=== PATIENT | female | born 1965 | race Caucasian/White ===

== ENCOUNTER 2016-08-18 18:08 | Emergency (ER) | payer BC ==
[~2016-08-18] VITALS: Ht 160 cm; Wt 65.5 kg
[2016-08-18 18:12] VITALS: Ht 160 cm; Wt 65.5 kg
--- NOTE | 2016-08-19 01:45 | ERA ---
ER Documentation Chief Complaint Date/Time DATE: 08/19/16 TIME: 01:45 Chief Complaint Palpitation HPI The patient is a 51-year-old female, presenting to the ER because of palpitations intermittently for the last 2 days, worse today. She denies syncope, near syncope, weakness, neck pain, chest pain, dyspnea, abdominal pain , vomiting, dysuria, diarrhea. She denies similar symptoms previously, denies smoking or drinking Past medical history: None Past surgical history: Appendectomy ROS All systems reviewed and are negative except as per history of present illness. Medications Home Meds Reported Medications [Gingko Bulova] No Conflict Check, 1 CAP DAILY 08/19/16 [place]-3 Fatty Acids/Fish Oil (Fish Oil 1,000 mg Softgel) 1 Each Capsule, 1 EACH PO, CAP 08/19/16 Calcium Citrate* (Citracal*) 950 Mg Tab, 950 MG PO DAILY, TAB 08/19/16 Cholecalciferol* (Vitamin D*) 400 Unit Tablet, 400 UNIT PO DAILY, TAB 08/19/16 Multivitamins* (Theragran*) 1 Tab Tab, 1 TAB PO DAILY, TAB 08/19/16 Allergies Allergies: Coded Allergies: amoxicillin (Verified Allergy, Unknown, 08/19/16) azithromycin (Verified Allergy, Unknown, 08/19/16) ciprofloxacin (Verified Allergy, Unknown, 08/19/16) tetracycline (Verified Allergy, Unknown, 08/19/16) PMhx/Soc History of Surgery: Yes (appendectomy) Anesthesia Reaction: No Hx Neurological Disorder: No Hx Respiratory Disorders: No Hx Cardiac Disorders: No Hx Psychiatric Problems: No Hx Miscellaneous Medical Probl: Yes (arthritis) Hx Alcohol Use: Yes (rarely) Hx Substance Use: No Hx Tobacco Use: Yes (quit years ago) Smoking Status: Former smoker Physical Exam Vitals Vital Signs Date Time Temp Pulse Resp B/P Pulse Ox O2 Delivery O2 Flow Rate FiO2 08/19/16 01:07 61 13 114/72 100 Room Air 08/18/16 18:12 98.6 75 20 130/60 99 Physical Exam Const: No acute distress. Head: Atraumatic. Eyes: Normal Conjunctiva. ENT: Normal External Ears, Nose and Mouth. Neck: Full range of motion. No meningismus. Resp: Clear to auscultation bilaterally. Cardio: Regular rate and rhythm, no murmurs. Abd: Soft, non distended, normal bowel sounds, non tender. Skin: No petechiae or rashes. Back: No midline or flank tenderness. Ext: No cyanosis, or edema. Neur: Awake and alert. No focal deficit Psych: Normal Mood and Affect. Result Diagram: 08/19/16 0235 08/19/16 0235 Results 24 hrs Laboratory Tests Test 08/19/16 02:35 White Blood Count 7.110^3/ul Red Blood Count 4.5910^6/ul Hemoglobin 13.7g/dl Hematocrit 42.5% Mean Corpuscular Volume 92.6fl Mean Corpuscular Hemoglobin 29.8pg Mean Corpuscular Hemoglobin Concent 32.2g/dl Red Cell Distribution Width 12.3% Platelet Count 22174^3/UL Mean Platelet Volume 10.4fl Neutrophils % 26.3% Lymphocytes % 62.4% Monocytes % 8.8% Eosinophils % 1.8% Basophils % 0.6% Nucleated Red Blood Cells % 0.0/100WBC Neutrophils # 1.910^3/ul Lymphocytes # 4.410^3/ul Monocytes # 0.610^3/ul Eosinophils # 0.110^3/ul Basophils # 0.010^3/ul Nucleated Red Blood Cells # 0.010^3/ul Prothrombin Time 12.0Sec Prothrombin Time Ratio 0.9 INR International Normalized Ratio 0.89 Activated Partial Thromboplast Time 26.5Sec Sodium Level 140mmol/L Potassium Level 3.8mmol/L Chloride Level 105mmol/L Carbon Dioxide Level 26mmol/L Anion Gap 13 Blood Urea Nitrogen 21mg/dl Creatinine 0.80mg/dl Glucose Level 91mg/dl Calcium Level 9.0mg/dl Magnesium Level 2.0mg/dl Troponin I < 0.012ng/ml Thyroid Stimulating Hormone (TSH) 4.110MIU/L Procedures/MDM EKG: At 6:20 PM read by emergency physician Rate/Rhythm: Normal Sinus Rhythm 84 beats/min QRS, ST, T-waves: No ST elevation, no T inversion, PVC Impression: Abnormal EKG EKG: At 1:57 AM read by emergency physician Rate/Rhythm: Normal Sinus Rhythm 76 beats/min QRS, ST, T-waves: No ST elevation, no T inversion, PVC, bigeminy Impression: Abnormal EKG [facility] [address] [id number] Radiology Main Line: [phone] DIAGNOSTIC IMAGING REPORT Patient: VERNON VANG : 1965 Age: 51 Sex: F MR #: [id number] DOS: 08/19/16 0149 Ordering MD: KATERIN STEINBERG MD Location: E/R Room/Bed: PROCEDURE: XR Chest. CLINICAL INDICATION: Chest pain. TECHNIQUE: Single frontal chest x-ray. COMPARISON: None. FINDINGS: The cardiomediastinal silhouette is unremarkable. There is no congestive heart failure.. No focal infiltrate is seen. There is no pleural effusion. There is no pneumothorax. The osseous structures are unremarkable. IMPRESSION: 1. No active disease. RPTAT: HMVK .Katerin Garland MD, MD Date Time Electronically viewed and signed by .Katerin Garland MD, on 08/19/2016 02:25 .K/ CC: KATERIN STEINBERG MD MEDICAL MAKING DECISION: The patient is a 51-year-old female, presenting with acute palpitation of unclear etiology. She is stable for outpatient follow-up. The differential diagnoses considered include but are not limited to cardiac arrhythmia, hypothyroidism, hyperthyroidism, acute coronary syndrome, acute myocardial infarction, pericarditis, pulmonary embolism, aortic dissection, pneumonia, pleural effusion, pneumothorax, GERD, chest wall pain. Departure Diagnosis: Primary Impression: Palpitations Condition: Good Comments I discussed the findings with the patient. I advised the patient to follow-up with the primary physician in about 1-2 days for referral to cardiology, sooner if needed and return if any concern. The patient's blood pressure was elevated (>120/80) but appears stable without evidence of hypertension emergency or urgency. The patient was counseled about the risks of hypertension and urged to pursue outpatient monitoring and therapy within a week with their primary care physician. KATERIN STEINBERG MD August 19, 2016 01:45
[2016-08-19] MEDS ORDERED: MULTI PO (02:07)
[2016-08-19] MEDS ORDERED: CHOL400T10 PO (02:08)
[2016-08-19] MEDS ORDERED: CITRACAL PO (02:09)
[2016-08-19] MEDS ORDERED: OMEG1CAP9 PO (02:09)
[2016-08-19] MEDS ORDERED: GINKGO BILOBA (02:11)
--- NOTE | 2016-08-19 02:25 | RADRPT ---
PROCEDURE: XR Chest. CLINICAL INDICATION: Chest pain. TECHNIQUE: Single frontal chest x-ray. COMPARISON: None. FINDINGS: The cardiomediastinal silhouette is unremarkable. There is no congestive heart failure.. No focal i nfiltrate is seen. There is no pleural effusion. There is no pneumothorax. The osseous structures are unremarkable. IMPRESSION: 1. No active disease. RPTAT: HMVK .Doc Garland MD, MD Date Time Electronically viewed and signed by .Doc Garland MD, MD on 08/19/2016 02:25 .K/
[2016-08-19 02:50] LABS: ADD SCAN DIFF NO
[2016-08-19 03:06] LABS: BASOPHILS % 0.6 % (0.0-2.0); EOSINOPHILS # 0.1 10^3/ul (0.0-0.5); EOSINOPHILS % 1.8 % (0.0-7.0); HEMATOCRIT 42.5 % (37.0-47.0); HEMOGLOBIN 13.7 g/dl (12.0-16.0); LYMPHOCYTES # 4.4 10^3/ul (0.8-2.9); LYMPHOCYTES % 62.4 % (15.0-51.0); MEAN CORPUSCULAR HEMOGLOBIN 29.8 pg (29.0-33.0); MEAN CORPUSCULAR HGB CONC 32.2 g/dl (32.0-37.0); MEAN CORPUSCULAR VOLUME 92.6 fl (82.0-101.0); MEAN PLATELET VOLUME 10.4 fl (7.4-10.4); MONOCYTE # 0.6 10^3/ul (0.3-0.9); MONOCYTES % 8.8 % (0.0-11.0); NEUTROPHIL # 1.9 10^3/ul (1.6-7.5); NEUTROPHILS % 26.3 % (39.0-77.0); PLATELET COUNT 286 10^3/UL (140-415); RED BLOOD COUNT 4.59 10^6/ul (4.20-5.40); RED CELL DISTRIBUTION WIDTH 12.3 % (11.5-14.5); WHITE BLOOD COUNT 7.1 10^3/ul (4.8-10.8)
[2016-08-19 03:15] LABS: INR 0.89; PT RATIO 0.9
[2016-08-19 03:16] LABS: PARTIAL THROMBOPLASTIN TIME 26.5 Sec (25.0-35.0)
[2016-08-19 03:21] LABS: CHLORIDE 105 mmol/L (97-110); POTASSIUM 3.8 mmol/L (3.5-5.1); SODIUM 140 mmol/L (135-144)
[2016-08-19 03:24] LABS: ANION GAP 13 (8-16); BLOOD UREA NITROGEN 21 mg/dl (7-20); CARBON DIOXIDE 26 mmol/L (21-31); GLUCOSE 91 mg/dl (70-220)
[2016-08-19 03:37] LABS: TROPONIN-I < 0.012 ng/ml (0.00-0.12)
[2016-08-19 05:29] VITALS: BP 103/76; PULSE 78; RESP 16; TEMP 98
== END 2016-08-19 05:30 | disposition home or self-care (01) ==
LOC: E/R 18:08
DX: R00.2 Palpitations (principal); R40.2252 Coma scale, best verbal response, oriented, at arrival to emergency department; R07.9 Chest pain, unspecified; R40.2142 Coma scale, eyes open, spontaneous, at arrival to emergency department; R40.2362 Coma scale, best motor response, obeys commands, at arrival to emergency department; Z87.891 Personal history of nicotine dependence
CPT/HCPCS: 36415; 71010; 80048; 83735; 84443; 84484; 85025; 85610; 85730